=== PATIENT | male | born 1990 | race Caucasian/White ===

== ENCOUNTER → 2017-12-15 | Day surgery (SDC) | payer BC ==
[2017-12-09 14:59] VITALS: BMI 25.4
[~2017-12-15] MED LIST: BACITRACIN 500 UNIT/GM OINT 28.4 GM TUBE TOPICAL ONE; BUPIVACAIN-EPI 0.5%-1:200,000 30 ML VIAL SQ ONE; DEXAMETHASONE SOD PHOS (MDV) 100 MG/10 ML VIAL ONE; DEXAMETHASONE SOD PHOSPHATE 10 MG/ML 1 ML VIAL IV ONE; DEXAMETHASONE SOD PHOSPHATE 20 MG in DEXTROSE 5% IN WATER 50 ML IV ONE; EPINEPHrine 1 MG/ML (MDV) 30 ML VIAL TOPICAL ONE; FAMOTIDINE 20 MG/2 ML VIAL IVP ONE; FLUORESCEIN STRIPS 1 MG STRIP MISCELLANE ONE; HYDROcodone/APAP 5-325MG 1 EACH TAB PO ONE; LACTATED RINGERS 1,000 ML IV ONE; LACTATED RINGERS 1,000 ML IV SCH; LIDOCAINE 1% 20 ML VIAL (10MG/ML) FOR IV START INTRADERMA ONE; LIDOCAINE 1% INJ 10MG/ML (20 ML MDV) ONE; LIDOCAINE 1%-EPI 1:100,000 20 ML VIAL SQ ONE; MELOXICAM 7.5 MG TAB PO ONE; MIDAZOLAM 2 MG/2 ML VIAL IV PRN; MIDAZOLAM 2 MG/2 ML VIAL ONE; ONDANSETRON 4 MG/2 ML VIAL IVP ONE; PROPOFOL 10 MG/ML 20 ML VIAL IV ONE; Pre Op ABX Message 1 EACH MISC MISCELLANE ONE; SCOPOLAMINE 1.5MG/72HR PATCH TRANSDERM ONE; SUCCINYLCHOLINE CHLORIDE 100 MG/5 ML SYR IV ONE; ceFAZolin 1,000 MG in DEXTROSE/WATER 1 50ML.BAG IVPB ONE; fentaNYL (PF) 50 MCG/ML 2 ML AMP ONE
[2017-12-15 06:29] VITALS: RESP 16; TEMP 97.1
[2017-12-15] MEDS: OXYMETAZOLINE 0.05% NASL SPRAY 1 SPRAY BOTTLE EA NOSTRIL SCH ×4 (06:49→07:12)
--- NOTE | 2017-12-15 09:22 | P.OP ---
Date of Procedure: 12/15/17 Preoperative Diagnosis: Chronic maxillary and ethmoid sinusitis Deviated nasal septum Left nasal polyp Postoperative Diagnosis: Same Procedure(s) Performed: Septoplasty Bilateral functional endoscopic sinus surgery with total ethmoidectomy and maxillary antrostomies with removal of diseased tissue Left nasal polypectomy Anesthesia: SHARON Surgeon: Rocky Stone Estimated Blood Loss (ml): 20 Pathology: other (Sinonasal) Condition: stable Disposition: PACU Indications for Procedure: This patient presented to the office with 5 months of persistent nasal obstruction anosmia etc. He has multiple sinonasal symptoms of chronic sinusitis deviated nasal septum and a large nasal polyp. Patient has been on oral antibiotics cortisone nasal sprays over the last 5 months with no improvement. CAT scan was reviewed and sinus obstruction was noted along with a large polyp on the left side. Surgical removal was recommended along with correction of the deviated nasal septum and removal of the polyp. All risks, benefits, and alternative therapies were discussed in detail. Consent was obtained and all questions were answered. Operative Findings: Patient had a deviated nasal septum with a septal spur on the left the patient had a large left nasal polyp and block sinuses and the maxillary and ethmoid sinuses were Rocky pus removed. Diseased tissue is noted bilaterally. Description of Procedure: Preoperatively the patient had her consent reviewed. All risks, benefits, and alternative therapies were discussed and all questions were answered. The patient was informed of the procedure and a confirmatory fashion and was in agreement to proceed forward. In the operating room a timeout was performed and all issues were reviewed with the operating room staff. The patient underwent a general inhalation anesthetic and intubated by the department of anesthesia and also monitored throughout the entire case by the department of anesthesia. A functioning IV line was in place. The patient was positioned in the supine position with slight reverse Trendelenburg. Preoperatively she had Afrin nasal spray. We then injected the septum, lateral nasal wall, turbinates with lidocaine 1% with epinephrine 1 100, 000. Approximately 10 minutes were allowed wait for full vasoconstrictive effects to take place. A caudal incision was made over the caudal portion of the left septum down to the mucoperichondrium. A mucoperichondrial flap was developed with use of tunnels inferiorly and superiorly. We identified the deviation and with use of crosshatching incisions and removal of some redundant strips of septal cartilage , the septum was placed back in the midline in excellent position relieving this patient of this deviated nasal septum. We closed the incision with a 40 rapid Vicryl and a quilting stitch was used to reapproximate the septal flap. The septum was corrected and a swing door type fashion. The septum was sutured fixated to the vomer area and groove with use of a 40 rapid Vicryl. Attention was then paid to the middle turbinates which were brought medial. The uncinate process was visualized and reflected forward with a Osman probe. With the use of an endoscope utilizing 0 30 and 90 we perform this procedure and utilize this endoscope on a video camera throughout the entire procedure. This was with use of a Noriega murali scope. We then took down the uncinate process with a pediatric backbiter and a microdebrider. After the uncinate process was removed the maxillary sinuses were opened widely with use of a straight boss. We identified a very large left nasal polyp that was removed directly. This was removed with a Daryn under endoscopic visualization utilizing a 0 Noriega murali scope. We open the maxillary sinuses widely and into the maxillary sinuses with endoscopic visualization. Diseased tissue was removed from the maxillary sinuses bilaterally and the sinuses were opened bilaterally. After the maxillary sinuses were opened and diseased tissue was removed attention was then paid to the ethmoid bulla. From a medial to lateral position we took down the ethmoid bulla. We identified the roof of the maxillary sinus and the inferior attachment of the superior turbinate and then took down the basal lamella and into the posterior ethmoid air cells. We did a total ethmoidectomy with use of an up-biting boss. Excellent results were obtained. Diseased tissue was found in the ethmoid sinuses and removed. Patient had xerogel placed bilaterally. This was hydrated with saline. Excellent hemostasis was obtained throughout the entire case and very low blood was noted. The skull base and orbital petersen looked good. We reinspected the sinonasal region and no bleeding was encountered. Bilateral nasal splints were placed The patient was then taken to postanesthesia recovery in excellent condition. A follow-up is scheduled for next week.
[2017-12-15] MEDS: fentaNYL (PF) 50 MCG/ML 2 ML AMP IV PRN ×2 (09:27→09:39)
[2017-12-15 11:36] VITALS: BP 127/80; PULSE 68
== END | disposition home or self-care (01) ==
LOC: OR 06:00
PROVIDERS: ATTEND Otolaryngology
DX: J32.8 Other chronic sinusitis (principal); J34.2 Deviated nasal septum; J33.0 Polyp of nasal cavity
CPT/HCPCS: 88305; 88300; 30520; 31267; 31255; J0171; J2250; J1100 ×2; J2405; J2001; J3010; J0690; J0330; J2704